=== PATIENT | female | born 1960 | race Two or more races ===

== ENCOUNTER 2017-11-17 08:49 | Emergency (ER) | payer MEDICAID ==
[~2017-11-17] VITALS: Ht 154.9 cm; Wt 66.7 kg
[2017-11-17 08:53] VITALS: BP 137/87
== END 2017-11-17 10:26 | disposition home or self-care (01) ==
LOC: ER 08:49
DX: M77.32 Calcaneal spur, left foot (principal)
CPT/HCPCS: 73630

== ENCOUNTER 2018-04-06 12:12 | Emergency (ER) | payer MEDICAID ==
[2018-04-06 13:22] VITALS: BP 165/95
== END 2018-04-06 14:43 | disposition home or self-care (01) ==
LOC: ER 12:12
DX: S29.012A Strain of muscle and tendon of back wall of thorax, initial encounter (principal); S20.219A Contusion of unspecified front wall of thorax, initial encounter; V49.49XA Driver injured in collision with other motor vehicles in traffic accident, initial encounter; Y93.89 Activity, other specified; Y99.8 Other external cause status; Y92.89 Other specified places as the place of occurrence of the external cause
CPT/HCPCS: 71046